=== PATIENT | male | born 1960 | race Caucasian/White ===

== ENCOUNTER → 2020-08-17 | Outpatient (CLI) | payer BC ==
--- NOTE | 2020-08-17 13:43 | MR ---
MRI left hand without contrast HISTORY: Trauma 9 months prior and pain, CS 69.92XA, M25.542 No plain film supplied for correlation. Multiplanar multisequence imaging through the left hand. [id number] is not optimal. There is marginal spurring present at the carpometacarpal joint of the first digit. Subchondral eburn ation is noted at the trapezium base reflective by low signal on T1 and T2-weighted sequences. Flexor and extensor tendons are intact, mild fluid present along the flexor pollicis tendon. At the base of the thumb there is some edema signal present within the soft tissues, probable reactive effusion wit h soft tissue swelling. Osteoarthritic change also present at the metacarpophalangeal joint of the first digit. IMPRESSION: Osteoarthritis, correlate with plain film. Additional findings above.
== END | disposition home or self-care (01) ==
LOC: RADMRIMAIN 08:53
PROVIDERS: ATTEND Family Medicine
DX: M19.042 Primary osteoarthritis, left hand (principal)